=== PATIENT | female | born 1950 | race Caucasian/White ===

== ENCOUNTER 2022-05-30 10:15 | Emergency (ER) | payer MEDICARE ==
[2022-05-30 10:31] VITALS: BP 174/96; PULSE 88; O2SAT 99
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
[2022-05-30] MEDS ORDERED: Pepcid 20 MG PO ONE (10:42)
[2022-05-30] MEDS ORDERED: solu-MEDROL 125 MG, Sterile H2O 10 ml 2 ML IV ONE ×2 (10:42)
[2022-05-30] MEDS ORDERED: Pepcid 20 MG ONE (10:48)
[2022-05-30] MEDS ORDERED: solu-MEDROL ONE (10:48)
== END 2022-05-30 11:18 | disposition home or self-care (01) ==
LOC: ED 10:15
DX: T65.891A Toxic effect of other specified substances, accidental (unintentional), initial encounter (principal); R06.02 Shortness of breath; R22.0 Localized swelling, mass and lump, head; R09.89 Other specified symptoms and signs involving the circulatory and respiratory systems; R20.2 Paresthesia of skin; Z28.310 Unvaccinated for COVID-19; Z79.52 Long term (current) use of systemic steroids
CPT/HCPCS: 36000; 96374; 99283; J2930; A9270-GY

== ENCOUNTER 2023-02-04 06:17 | Emergency (ER) | payer MEDICARE, SELFPAY ==
[2023-02-04] MEDS ORDERED: Pepcid 20 MG VIAL IV ONE ×2 (07:27→07:36)
[2023-02-04] MEDS ORDERED: solu-MEDROL 125 MG, Sterile H2O 10 ml 2 ML IV ONE ×2 (07:27)
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
[2023-02-04] MEDS ORDERED: solu-MEDROL ONE (07:36)
[2023-02-04] MEDS ORDERED: Sterile H2O 10 ml IJ ONE (07:36)
[2023-02-04 08:23] VITALS: O2SAT 95
[2023-02-04 08:39] VITALS: BP 174/86; PULSE 70
== END 2023-02-04 08:40 | disposition home or self-care (01) ==
LOC: ED 06:17
DX: T78.3XXA Angioneurotic edema, initial encounter (principal); Z28.310 Unvaccinated for COVID-19; Z79.52 Long term (current) use of systemic steroids
CPT/HCPCS: 36000; 96374; 96375; 99283; J2930

== ENCOUNTER 2024-03-27 07:34 | Emergency (ER) | payer MEDICARE ==
[2024-03-27] MEDS ORDERED: Sodium Chloride 3 ML UD NEBULES IH ONE (07:39)
[2024-03-27] MEDS ORDERED: Racepinephrine INH Solution 2.25% IH ONE (07:39)
[2024-03-27] MEDS ORDERED: Sterile H2O 10 ml IJ ONE (07:40)
[2024-03-27] MEDS ORDERED: BENADRYL 50 MG/ML ONE (07:40)
[2024-03-27] MEDS ORDERED: Zofran 4 MG/2 ML VIAL ONE ×2 (07:40→07:45)
[2024-03-27] MEDS ORDERED: Sodium Chloride 0.9% 1000 ML 1,000 ML ONE (07:40)
[2024-03-27] MEDS ORDERED: solu-MEDROL ONE (07:40)
[2024-03-27] MEDS: Racepinephrine INH Solution 2.25% IH ONE (07:40)
[2024-03-27] MEDS: BENADRYL 50 MG/ML IV ONE (07:43)
[2024-03-27] MEDS: Sodium Chloride 0.9% 1000 ML 1,000 ML IV STA (07:43)
[2024-03-27] MEDS: solu-MEDROL 125 MG, Sterile H2O 10 ml 2 ML IV ONE (07:44)
[2024-03-27] MEDS: Zofran 4 MG/2 ML VIAL IV ONE (07:44)
[2024-03-27 07:47] VITALS: TEMP 96.8
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
[2024-03-27 08:19] LABS: Absolute Neutrophil Ct (ANC) 3.16 x10^3/uL (1.56-6.13); BASOPHIL % 0.3 % (0.1-1.2); Basophil (Absolute #) 0.02 x10^3/uL (0.01-0.08); Eosinophil % 2.3 % (0.7-5.8); Eosinophil (Absolute #) 0.16 x10^3/uL (0.04-0.36); Hematocrit 45.2 % (34.1-44.9); Hemoglobin 14.8 g/dL (11.2-15.7); IMMATURE GRAN # 0.02 x10^3u/L (0.001-0.031); IMMATURE GRAN % 0.3 % (0.001-0.429); Lymphocyte (Absolute #) 3.02 x10^3/uL (1.18-3.74); Lymphocytes % 44.3 % (19.3-51.7); Mean Cell Volume 90.6 fL (79.4-94.8); Mean Corpuscular Hemoglobin 29.7 pg (25.6-32.2); Mean Corpuscular Hgb Concent. 32.7 g/dL (32.2-35.5); Mean Platelet Volume 10.8 fL (9.4-12.3); Monocyte (Absolute #) 0.43 x10^3/uL (0.24-0.86); Monocytes % 6.3 % (4.7-12.5); Neutrophil % 46.5 % (34.0-71.1); Platelet Count 232 x10^3/uL (182-369); Red Blood Count 4.99 x10^6/uL (3.93-5.22); Red Cell Distribution Width 13.2 % (11.7-14.4); White Blood Count 6.8 x10^3/uL (3.98-10.04)
[2024-03-27 08:34] LABS: ANION GAP 13.4 MEQ/L (5-15); Calcium 9.7 mg/dL (8.4-10.2); Creatinine 1 0.85 mg/dL (0.52-1.04); EST GLOMERULAR FILTRATION RATE 71.4 ML/MIN; Potassium 3.1 mmol/L (3.5-5.1)
--- NOTE | 2024-03-27 09:17 | XRAY ---
CLINICAL HISTORY: breathing problem COMPARISON: none TECHNIQUE: frontal view of the chest FINDINGS: the lungs are clear. Heart and mediastinum are within normal limits. Bony thorax is unremarkable. IMPRESSION: no evidence of acute pulmonary disease Electronically Signed by: Annie Hauser MD. (03/27/2024 09:13:40 EDT)
[2024-03-27 09:51] VITALS: O2SAT 98
[2024-03-27 10:12] VITALS: BP 141/70
[2024-03-27 10:42] VITALS: PULSE 84; RESP 18
== END 2024-03-27 10:43 | disposition home or self-care (01) ==
LOC: ED 07:34
DX: T78.40XA Allergy, unspecified, initial encounter (principal); I10 Essential (primary) hypertension; Z79.52 Long term (current) use of systemic steroids; Z79.899 Other long term (current) drug therapy
CPT/HCPCS: 36000; 36415; 71045; 80048; 85025; 93005; 93041; 94640; 96360; 96374; 96375; 99284; J1200; J2405; J2919

== ENCOUNTER 2024-05-04 23:38 | Emergency (ER) | payer MEDICARE ==
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
[2024-05-05 00:01] VITALS: BP 140/76; PULSE 91; RESP 18; TEMP 98.1; O2SAT 98
[2024-05-05] MEDS ORDERED: Rocephin 1000 MG INJ ONE (00:09)
[2024-05-05] MEDS ORDERED: BACTRIM DS TABLET PO ONE (00:09)
[2024-05-05] MEDS ORDERED: XYLOCAINE 1% HCL 20 ML MDV ONE (00:10)
[2024-05-05] MEDS: Rocephin 1000 MG INJ IM ONE (00:13)
[2024-05-05] MEDS: BACTRIM DS TABLET PO ONE (00:19)
== END 2024-05-05 00:54 | disposition home or self-care (01) ==
LOC: ED 23:38
DX: L03.031 Cellulitis of right toe (principal); I10 Essential (primary) hypertension; Z79.899 Other long term (current) drug therapy
CPT/HCPCS: 96372; 99283; J0696; A9270-GY